=== PATIENT | female | born 1990 | race Caucasian/White ===

== ENCOUNTER 2018-06-18 21:39 | Emergency (ER) | payer BC ==
[~2018-06-18] VITALS: Ht 167.6 cm; Wt 49.9 kg
[~2018-06-18 21:39] MED LIST: ALPR0.5T PO; ALPR0.5T6 PO; ESCITALOPRAM OX10 MG PO; HYDR-2758 PO; LEVE500T56 PO; LEVE750T8 PO
[2018-06-18 22:12] VITALS: BP 119/56
[2018-06-18] MEDS ORDERED: HYDR-971 PO (22:57)
[2018-06-18] MEDS: HYDROcodone/APAP 5/325MG 1 TAB TABLET PO ONE (22:58)
--- NOTE | 2018-06-18 23:03 | PHYS DOC ---
Past Medical History Past Medical History: Anxiety, Other Additional Past Medical Histor: PTSD Past Surgical History: Appendectomy Additional Past Surgical Histo: RIGHT ARM SX Alcohol Use: None Drug Use: None Adult General Chief Complaint Chief Complaint: VAGINAL PROBLEM HPI HPI Patient is a 28 year old female who presents with postoperative pain after having left vulvar cyst removal by her OBGYN on May 22. Review of Systems Review of Systems Constitutional: Denies fever or chills [] Eyes: Denies change in visual acuity, redness, or eye pain [] HENT: Denies nasal congestion or sore throat [] Respiratory: Denies cough or shortness of breath [] Cardiovascular: No additional information not addressed in HPI [] GI: Denies abdominal pain, nausea, vomiting, bloody stools or diarrhea [] : Denies dysuria or hematuria [] Musculoskeletal: Denies back pain or joint pain [] Integument: Post operative left vulvar cyst pain. Denies rash or skin lesions [] Neurologic: Denies headache, focal weakness or sensory changes [] Endocrine: Denies polyuria or polydipsia [] All other systems were reviewed and found to be within normal limits, except as documented in this note. Current Medications Current Medications Current Medications Medications (Trade) Dose Ordered Sig/Ami Start Time Stop Time Status Last Admin Dose Admin Acetaminophen/ Hydrocodone Bitart (Lortab 5/325) 1 tab 1X ONCE 06/18/18 23:00 06/18/18 23:01 DC 06/18/18 22:58 1 TAB Allergies Allergies Allergies Coded Allergies Type Severity Reaction Last Updated Verified No Known Drug Allergies 06/01/16 No Physical Exam Physical Exam Constitutional: Well developed, well nourished, no acute distress, non-toxic appearance. [] HENT: Normocephalic, atraumatic, bilateral external ears normal, oropharynx moist, no oral exudates, nose normal. [] Eyes: PERRLA, EOMI, conjunctiva normal, no discharge. [] Neck: Normal range of motion, no tenderness, supple, no stridor. [] Cardiovascular:Heart rate regular rhythm, no murmur [] Lungs & Thorax: Bilateral breath sounds clear to auscultation [] Abdomen: Bowel sounds normal, soft, no tenderness, no masses, no pulsatile masses. [] Skin: Left vulvar cyst. Warm, dry, no erythema, no rash. [] Back: No tenderness, no CVA tenderness. [] Extremities: No tenderness, no cyanosis, no clubbing, ROM intact, no edema. [] Neurologic: Alert and oriented X 3, normal motor function, normal sensory function, no focal deficits noted. [] Psychologic: Affect normal, judgement normal, mood normal. [] Current Patient Data Vital Signs Vital Signs Date Time Temp Pulse Resp B/P (MAP) Pulse Ox O2 Delivery O2 Flow Rate FiO2 06/18/18 22:58 16 98 Room Air 06/18/18 22:12 99.1 79 119/56 (77) 99.1 EKG EKG [] Radiology/Procedures Radiology/Procedures [] Course & Med Decision Making Course & Med Decision Making Patient is a 28 year old female who presents with postoperative pain after having left vulvar cyst removal by her OBGYN on May 22. Upon examination patient has a nodule, hard, and painful for the patient in the area where she had her surgical procedure. It is not warm, red, or draining. Patient is afebrile. Patient is given pain medication and told to follow up with her OB/ [employer] tomorrow. [] Dragon Disclaimer Dragon Disclaimer This electronic medical record was generated, in whole or in part, using a voice recognition dictation system. Departure Departure Impression: Primary Impression: Vulvar cysts Additional Impression: Post-op pain Disposition: 01 HOME, SELF-CARE Condition: STABLE Referrals: NO PCP (PCP) VISH GARCIA MD Patient Instructions: Pain Relief Preoperatively and Postoperatively Additional Instructions: Follow up with your [facility] tomorrow. Take medications as prescribed. Scripts Hydrocodone/Apap 5-325 (NORCO 5-325 TABLET) 1 Each Tablet 1 TAB PO PRN Q6HRS PRN for PAIN, #8 TAB 0 Refills Prov: PIERRE KISER APRN 06/18/18 Problem Qualifiers PIERRE KISER APRN Jun 18, 2018 23:03
== END 2018-06-18 23:34 | disposition home or self-care (01) ==
LOC: ER 21:39
DX: G89.18 Other acute postprocedural pain (principal); N90.7 Vulvar cyst; F41.9 Anxiety disorder, unspecified; Z90.89 Acquired absence of other organs
CPT/HCPCS: 99283